=== PATIENT | female | born 1940 | race Caucasian/White ===

== ENCOUNTER → 2017-11-08 | Outpatient (CLI) | payer OTHER ==
[~2017-11-08] MED LIST: ALTOPREV40 MG PO; ASMANEX TW200 MICRO1 IH; ASPIR 8181 M1 PO; BACTRIM,SEPT1 TABLET PO; BYSTOLIC2.5 MG PO; CLONAZEPAM0.5 MG PO; DELZICOL400 M1 PO; DILTIAZEM 24HR180 MG PO; DIOVAN HCT 11 TABLE1 PO; DUONEB 2.5-0.5 M3 ML AEROSOL; ESTRACE1 MG PO; ESTRACE42.5 GM VG; GLUCOSAMINE &1 EAC1 PO; HYDROCHLOROTHIA25 MG PO; LECITHIN400 MG PO; MELATIN3 MG PO; MELATONIN5 M4 PO; MILK THISTLE150 MG PO; MIRALAX17 GM PO; NASACORT10.8 ML BOTH NARES; OMEGA-3 FLAXS1000 MG PO; PROAIR HFA8.5 GM IH; PROVENTIL HFA6.7 GM IH; PULMICORT1 MG/2 ML IH; RANITIDINE HCL300 MG PO; ROPINIROLE HCL2 MG PO; SFROWASA4 GM/60 ML PR; SINGULAIR10 MG PO; SPIRIVA1 INHALATI IH; STOOL SOFTENER250 MG PO; TRIAMCINOLONE A60 ML TP; VITAMIN B122500 MCG PO; VITAMIN C1000 MG PO; VITAMIN D2000 UNI1 PO; ZYRTEC10 M2 PO
== END | disposition home or self-care (01) ==
LOC: OPR 07:49 → EDSTATUS 08:00 → OPR 08:00
PROC: 0JBL3ZX Excision of Right Upper Leg Subcutaneous Tissue and Fascia, Percutaneous Approach, Diagnostic (ICD-10-PCS; principal; 2017-11-08)
DX: R22.31 Localized swelling, mass and lump, right upper limb (principal); M79.89 Other specified soft tissue disorders; Z85.048 Personal history of other malignant neoplasm of rectum, rectosigmoid junction, and anus
CPT/HCPCS: 77012; 88305; 88342 TC; J3010